=== PATIENT | female | born 1945 | race Caucasian/White ===

== ENCOUNTER 2016-04-09 14:02 | Outpatient (CLI) | payer MEDICARE | END 2016-04-09 14:03 | disposition home or self-care (01) | DX: M85.89 Other specified disorders of bone density and structure, multiple sites (principal); Z78.0 Asymptomatic menopausal state ==

== ENCOUNTER 2016-04-20 15:02 | Outpatient (CLI) | payer MEDICARE | END 2016-04-20 15:03 | disposition home or self-care (01) | DX: Z12.31 Encounter for screening mammogram for malignant neoplasm of breast (principal) ==

== ENCOUNTER 2017-08-08 10:08 | Outpatient (CLI) | payer MEDICARE ==
[2017-08-08 10:30] LABS: BASOPHILS % (AUTO) 0.6 %; EOSINOPHILS # (AUTO) 0.3 10^3/uL (0.0-0.7); EOSINOPHILS % (AUTO) 4.5 %; HGB - HEMOGLOBIN 13.6 g/dL (12.0-16.0); LYMPHOCYTES # (AUTO) 1.6 10^3/uL (1.5-3.5); LYMPHOCYTES % (AUTO) 25.1 %; MEAN CORPUSCULAR HEMOGLOBIN 34.5 pg (27.0-31.0); MEAN CORPUSCULAR HGB CONC 33.9 g/dL (32.0-36.0); MEAN CORPUSCULAR VOLUME 101.6 fL (81.0-99.0); MONOCYTES # (AUTO) 0.5 10^3/uL (0.0-1.0); MONOCYTES % (AUTO) 7.9 %; NEUTROPHILS # (AUTO) 3.9 10^3/uL (1.5-6.6); NEUTROPHILS % (AUTO) 61.9 %; PLT - PLATELET COUNT 193 10^3/uL (130-450); RED BLOOD COUNT 3.96 10^6/uL (4.20-5.40); RED CELL DISTRIBUTION WIDTH 12.5 % (12.0-15.0); WHITE BLOOD COUNT 6.3 x10^3/uL (4.8-10.8)
[2017-08-08 10:50] LABS: HB2 TOTAL 14.9 g/dL; HEMOGLOBIN A1C 0.51 g/dL; HEMOGLOBIN A1C % 5.3 % (4.6-6.2)
[2017-08-08 10:55] LABS: ALBUMIN/GLOBULIN RATIO 1.4 (1.0-2.2); ALKALINE PHOSPHATASE 64 IU/L (42-121); ALT ALANINE AMINOTRANSFERASE 18 IU/L (10-60); AST ASPARTATE AMINOTRANSFERASE 24 IU/L (10-42); BILIRUBIN,TOTAL 0.9 mg/dL (0.2-1.0); BUN - BLOOD UREA NITROGEN 20 mg/dL (6-20); CALCIUM 8.9 mg/dL (8.5-10.3); CARBON DIOXIDE - CO2 25 mmol/L (21-32); CHLORIDE 104 mmol/L (101-111); CHOLESTEROL 239 mg/dL; CREATININE 0.6 mg/dL (0.4-1.0); GFR - MDRD 98 (>89); GLUCOSE 108 mg/dL (70-100); HDL CHOLESTEROL 60 mg/dL; LDL CHOLESTEROL,CALCULATED 144 mg/dL; LDL/HDL RATIO 2.4 (<4.4); SODIUM 137 mmol/L (135-145); TOTAL PROTEIN 6.9 g/dL (6.7-8.2); VLDL CHOLESTEROL 35 mg/dL
== END 2017-08-08 10:09 | disposition home or self-care (01) ==
LOC: LAB 10:08
PROVIDERS: ATTEND Physician Assistant Medical
DX: E55.9 Vitamin D deficiency, unspecified (principal); R73.9 Hyperglycemia, unspecified; Z79.899 Other long term (current) drug therapy; K58.9 Irritable bowel syndrome, unspecified; D75.89 Other specified diseases of blood and blood-forming organs; E78.5 Hyperlipidemia, unspecified
CPT/HCPCS: 36415; 80053; 80061; 82306; 83036; 83721; 84443; 85025

== ENCOUNTER 2017-08-21 13:46 | Outpatient (CLI) | payer MEDICARE ==
[2017-08-21] MEDS ORDERED: IOPAMIDOL-300 50 ML VIAL ONE (14:09)
[2017-08-21] MEDS ORDERED: IOPAMIDOL-300 100 ML VIAL ONE (14:09)
[2017-08-21] MEDS ORDERED: IOPAMIDOL-300 50 ML VIAL PO ONE (15:00)
[2017-08-21] MEDS ORDERED: IOPAMIDOL-300 100 ML VIAL IVP ONE (15:00)
--- NOTE | 2017-08-22 10:16 | CT Report ---
CT ABDOMEN AND PELVIS WITH CONTRAST: 08/21/2017 CLINICAL INDICATION: Night sweats, IBS, family history of bowel cancer. TECHNIQUE: Axial CT images of the abdomen and pelvis were obtained with 100 mL Isovue 300 intravenously as well as oral contrast. COMPARISON: No previous CT is available for comparison. FINDINGS: Limited evaluation of the lung bases demonstrates minimal atelectasis. ABDOMEN: There is a small cyst in the right lobe of the liver. The gallbladder is not dilated, but there is dilation of the common bile duct, up to 13 mm. No pancreatic head mass is identified, but further evaluation with MRCP or ERCP is recommended. The spleen, pancreas, kidneys and adrenal glands appear unremarkable. No bowel dilatation, free gas, or free fluid is present. No abdominal adenopathy is seen. PELVIS: Sigmoid diverticulosis is present, without CT evidence of diverticulitis. No pelvic adenopathy or free fluid is present. Osseous structures demonstrate degenerative changes. IMPRESSION: 1. DILATION OF THE COMMON BILE DUCT, WITHOUT EVIDENCE OF PANCREATIC HEAD MASS. CONSIDER FURTHER EVALUATION WITH MRCP OR ERCP. 2. DIVERTICULOSIS, WITHOUT CT EVIDENCE OF DIVERTICULITIS. NO EVIDENCE OF BOWEL OBSTRUCTION. CT DOSE REDUCTION STATEMENT In accordance with CT protocol optimization, one or more of the following dose reduction techniques were utilized for this exam: automated exposure control, adjustment of mA and/or KV based on patient size, or use of iterative reconstructive technique. TD: 08/22/2017 09:37
== END 2017-08-21 13:47 | disposition home or self-care (01) ==
LOC: DI 13:46
PROVIDERS: ATTEND Physician Assistant Medical
DX: K58.9 Irritable bowel syndrome, unspecified (principal); R61 Generalized hyperhidrosis; Z80.0 Family history of malignant neoplasm of digestive organs; K57.30 Diverticulosis of large intestine without perforation or abscess without bleeding
CPT/HCPCS: 74177; Q9967

== ENCOUNTER 2017-11-11 12:31 | Outpatient (CLI) | payer MEDICARE ==
--- NOTE | 2017-11-11 16:43 | MRI Report ---
Procedure Date: 11/11/2017 Accession Number: [id number] / [id number] Procedure: MRI - MRCP W/O CPT Code: FULL RESULT: EXAM: MR ABDOMEN WITHOUT CONTRAST (MR CHOLANGIOPANCREATOGRAPHY) EXAM DATE: 11/11/2017 12:45 PM. CLINICAL HISTORY: NIGHT SWEATS,DILATED CBD ON CT,FAM HX BLADDER CX. COMPARISON: CT abdomen and pelvis 08/21/2017. TECHNIQUE: Multiplanar breath-hold T1 and T2 sequences obtained through the abdomen on an MR scanner. Dedicated 2D and 3D MRCP sequences obtained through the biliary and pancreatic ducts. No intravenous contrast given. FINDINGS: Lung Bases: The lung bases are clear. Liver: Small cyst at the right hepatic dome, segment 8, measures 8 mm. CBD: Multiple choledocholithiasis with stones seen in the common hepatic and common bile duct and right hepatic duct. Extrahepatic biliary ductal dilatation with the common bile duct measuring 1.6 cm. Gallbladder: Gallbladder full of small gallstones. No gallbladder wall thickening. No surrounding inflammation. Gallstones in the cystic duct. Pancreas: Moderate atrophy. No ductal dilatation. Spleen: The spleen appears normal. Kidneys and Adrenals: Probable proteinaceous or hemorrhagic cyst in the left kidney measuring less than 1 cm, series 601, coronal image 16, with T2 hypointensity and intrinsic T1 hyperintensity. The adrenals appear normal. Bowel: The small bowel and colon appear normal with no inflammation or obstruction. Retroperitoneum: The retroperitoneal structures appear normal with no mass or lymphadenopathy. IMPRESSION: 1. Gallbladder full of gallstones 2. Multiple choledocholithiasis with stones seen in the common bile duct, common hepatic duct and right hepatic duct as well as the cystic duct 3. Moderate extrahepatic biliary ductal dilatation 4. Probable subcentimeter hemorrhagic or proteinaceous cyst in the left kidney RADIA
== END 2017-11-11 12:32 | disposition home or self-care (01) ==
LOC: DI 12:31
PROVIDERS: ATTEND Physician Assistant Medical
DX: K80.70 Calculus of gallbladder and bile duct without cholecystitis without obstruction (principal); K83.8 Other specified diseases of biliary tract; R61 Generalized hyperhidrosis; Z80.0 Family history of malignant neoplasm of digestive organs
CPT/HCPCS: 74181

== ENCOUNTER 2018-01-08 11:42 | Outpatient (CLI) | payer MEDICARE ==
[2018-01-08 11:58] LABS: BASOPHILS # (AUTO) 0.1 10^3/uL (0.0-0.1); BASOPHILS % (AUTO) 0.8 %; EOSINOPHILS # (AUTO) 0.1 10^3/uL (0.0-0.7); EOSINOPHILS % (AUTO) 1.6 %; HGB - HEMOGLOBIN 14.6 g/dL (12.0-16.0); LYMPHOCYTES # (AUTO) 1.8 10^3/uL (1.5-3.5); LYMPHOCYTES % (AUTO) 26.2 %; MEAN CORPUSCULAR VOLUME 102.9 fL (81.0-99.0); MONOCYTES # (AUTO) 0.6 10^3/uL (0.0-1.0); MONOCYTES % (AUTO) 8.5 %; NEUTROPHILS # (AUTO) 4.4 10^3/uL (1.5-6.6); NEUTROPHILS % (AUTO) 62.9 %; PLT - PLATELET COUNT 235 10^3/uL (130-450); RED BLOOD COUNT 4.17 10^6/uL (4.20-5.40)
[2018-01-08 12:19] LABS: ALBUMIN 4.8 g/dL (3.2-5.5); BILIRUBIN,DIRECT 0.1 mg/dL (0.1-0.5); TOTAL PROTEIN 7.9 g/dL (6.7-8.2)
== END 2018-01-08 11:43 | disposition home or self-care (01) ==
LOC: LAB 11:42
PROVIDERS: ATTEND Physician Assistant
DX: K80.50 Calculus of bile duct without cholangitis or cholecystitis without obstruction (principal)
CPT/HCPCS: 36415; 80076; 82150; 83690; 85025

== ENCOUNTER 2018-02-04 08:25 | Day surgery (SDC) | payer MEDICARE ==
[~2018-02-04 08:25] MED LIST: BUPIVACAINE 0.5% PF 30 ML VIAL ONE; ceFAZolin 2 GM/50 ML 2 GM/50 ML BAG IV ONE
[2018-02-04] MEDS ORDERED: LACTATED RINGERS 1,000 ML IV ONE ×2 (09:03→10:44)
--- NOTE | 2018-02-04 09:04 | ANESTHESIA ---
Pre-Anesthesia VS, & Labs - Diagnosis Cholelithiasis - Procedure Kazakh cholecystectomy, possible IOC Vital Signs: Temp Pulse Resp BP Pulse Ox 36.5 C 79 18 138/61 H 96 02/04/18 08:38 02/04/18 08:38 02/04/18 08:38 02/04/18 08:38 02/04/18 08:38 Height 5 ft 6 in Weight (kg) 56.8 kg - NPO >8 hours Last Fluid Intake: water at 0400 - Is Patient ?: No - Lab Results Lab results reviewed: Yes Home Medications and Allergies Home Medications: Ambulatory Orders Ascorbic Acid [Vitamin C] 1,000 mg PO DAILY 02/04/18 Aspirin/Acetaminophen/Caffeine [Excedrin Extra Strength Caplet] 1 each PO Q6HR PRN 02/04/18 Cholecalciferol (Vitamin D3) [Vitamin D] 2,000 unit PO DAILY 02/04/18 Niacin [Niacin ER] 2,000 mg PO DAILY 02/04/18 Ubidecarenone [Co Q-10] 200 mg PO DAILY 02/04/18 Vitamin B Complex 1 each PO DAILY 02/04/18 Allergies/Adverse Reactions: Allergies Allergy/AdvReac Type Severity Reaction Status Date / Time Sulfa (Sulfonamide AdvReac Nausea Verified 02/04/18 08:55 Antibiotics) Anes History & Medical History - Anesthetic History Anesthesia Complications: reports: No previous complications Family history of Anesthesia Complications: Denies Family history of Malignant Hyperthermia: Denies (Previous SC according to patient, hx stable angina) - Medical History Cardiovascular: reports: High cholesterol, Angina (Occ has a dukk chest ache, takes no NTG. Had extensive CV workuo including cardiac cath, all clear. Exercises regularly), SC, Other Pulmonary: reports: None Gastrointestinal: reports: GERD Urinary: reports: None Neuro: reports: None Musculoskeletal: reports: None Endocrine/Autoimmune: reports: None Blood Disorders: reports: None Skin: reports: None Smoking Status: Former smoker Psychosocial: reports: No issues indicated, Substance abuse - Surgical History General: Colonoscopy Eyes Ears Nose Throat (EENT): Tonsil/Adenoidectomy Exam General: Alert Dental: Other (Some missing, no loose) Mouth Opening: Greater than 4 Fingerbreadths Neck Mobility: Normal Mallampati classification: I Thyromental Distance: greater than 6 cm Respiratory: Lungs clear Cardiovascular: Regular rate Neurological: Normal speech Mental/Cognitive Status: Alert/Oriented X3 Cognitive Status: Within normal limits Plan Anesthesia Type: General Consent for Procedure(s) Verified and Reviewed: Yes Code Status: Attempt Resuscitation ASA classification: 2-Mild systemic disease Is this case an emergency?: No
--- NOTE | 2018-02-04 09:48 | HISTORY & PHYSICAL EXAMINATION ---
PMH/PSH - Past Medical History Cardiovascular: positive: High cholesterol, Angina (Occ has a dukk chest ache, takes no NTG. Had extensive CV workuo including cardiac cath, all clear. Exercises regularly), MD, Other Respiratory: positive: None Neuro: positive: None Endocrine/Autoimmune: positive: None GI: positive: GERD : positive: None HEENT: positive: None Psych: positive: None Musculoskeletal: positive: None Derm: positive: None MRSA Hx?: No - Past Surgical History General: positive: Colonoscopy HEENT: positive: Tonsil/Adenoidectomy Social & Family Hx - Social History Smoking Status: Former smoker Substance Use and Type: Marijuana Meds/Allgy - Home Medications Home Medications: Ambulatory Orders Medication Instructions Recorded Confirmed Ascorbic Acid [Vitamin C] 1,000 mg PO DAILY 02/04/18 02/04/18 Aspirin/Acetaminophen/Caffeine 1 each PO Q6HR PRN 02/04/18 02/04/18 [Excedrin Extra Strength Caplet] Cholecalciferol (Vitamin D3) 2,000 unit PO DAILY 02/04/18 02/04/18 [Vitamin D] Niacin [Niacin ER] 2,000 mg PO DAILY 02/04/18 02/04/18 Ubidecarenone [Co Q-10] 200 mg PO DAILY 02/04/18 02/04/18 Vitamin B Complex 1 each PO DAILY 02/04/18 02/04/18 - Allergies Allergies/Adverse Reactions: Allergies Allergy/AdvReac Type Severity Reaction Status Date / Time Sulfa (Sulfonamide AdvReac Nausea Verified 02/04/18 08:55 Antibiotics) Exam - Vital Signs Vital Signs: Vital Signs x48h Temp Pulse Resp BP Pulse Ox 02/04/18 08:38 36.5 C 79 18 138/61 H 96 Impression/Plan - Problem List Problem List: This exceedingly pleasant now 73-year-old female was initially seen in November for cholelithiasis but was also noted to have a dilated common bile duct. At that time surgery was scheduled with the premise that a ERCP would be done first. The patient canceled the ERCP and had to be seen back in the office so we can have further discussions as to why the ERCP was necessary. The ERCP was finally done end of December with the removal of many many stones. The patient now presents for her laparoscopic cholecystectomy. Recently she has been relatively asymptomatic. Please note that the patient has been seen multiple times since November in my office. Current Allergies: SULFA (Critical) Current Meds: ENDUR-ACIN 500 MG ORAL TABLET EXTENDED RELEASE (NIACIN) Take 4 tablets by mouth daily B COMPLEX ORAL CAPSULE (B COMPLEX VITAMINS) Take one capsule by mouth everyay COQ10 100 MG ORAL CAPSULE (COENZYME Q10) Take one capsule by mouth everyday MULTIVITAMINS ORAL CAPSULE (MULTIPLE VITAMIN) Take one capsule by mouth once daily VITAMIN D 1000 UNIT ORAL TABLET (CHOLECALCIFEROL) Take one tablet by mouth everyday VITAMIN D 1000 UNIT ORAL TABLET (CHOLECALCIFEROL) Take two tablet by mouth everyday DEVI 250 250 MG ORAL TABLET (URSODIOL) Take 1 tablet by mouth twice daily Past Medical History: Irregular heartbeat Heart Attack Chest Pain Hyperlipidemia Anxiety Simple review of [employer], the chart, and discussion with the patient reveals that the information included here is incomplete and possibly incorrect. The problem list should also not be viewed as current, complete or correct. Past Surgical History: Skin Cancer T & A ERCP Simple review of [employer], the chart, and discussion with the patient reveals that the information included here is incomplete and possibly incorrect. The problem list should also not be viewed as current, complete or correct. Family History Summary: Mother (biol.) - Has Family History of Heart Disease - Entered On: 12/19/2017 Mother (biol.) - Has a mother - Entered On: 12/19/2017 Father (biol.) - Has a father - Entered On: 12/19/2017 Father (biol.) - Has Family History of Kidney/Renal Disease - Entered On: 12/19/2017 Social History: Smoked Tobacco Use: Former smoker Cigarettes: Yes Drug use: yes Substance: Cannabis Comments: for pain and anxiety Alcohol use: yes Type: beer Drinks per day: Occassionally Exercise: yes Type of Exercise: Walk, yard work Review of Systems CONSTITUTIONAL: No weight loss, fever, chills, weakness or fatigue. HEENT: Eyes: No visual loss, blurred vision, double vision or yellow sclerae. Ears, Nose, Throat: No hearing loss, sneezing, congestion, runny nose or sore throat. SKIN: No rash or itching. CARDIOVASCULAR: No chest pain, chest pressure or chest discomfort. No palpitations or edema. RESPIRATORY: No shortness of breath, cough or sputum. GASTROINTESTINAL: No anorexia, nausea, vomiting or diarrhea. No abdominal pain or blood. GENITOURINARY: No dysuria. Not . NEUROLOGICAL: No headache, dizziness, syncope, paralysis, ataxia, numbness or tingling in the extremities. No change in bowel or bladder control. MUSCULOSKELETAL: No muscle, back pain, joint pain or stiffness. HEMATOLOGIC: No anemia, bleeding or bruising. LYMPHATICS: No enlarged nodes. No history of splenectomy. PSYCHIATRIC: POSITIVE for depression - anxiety. ENDOCRINOLOGIC: No reports of sweating, cold or heat intolerance. No polyuria or polydipsia. ALLERGIES: No history of asthma, hives, eczema or rhinitis. Physical Exam General: 73 year old thin female, appears stated age, well developed, well nourished examined in Bed 4 [facility] ACU Vitals: Refer to chart HEENT: Normocephalic, atraumatic, extraocular movement intact, mucous membranes pink and moist, sclera anicteric and not injected Neck: Supple without pain on palpation, mass or bruit Cardiac: Regular rate and rhythm without rub, gallop, or murmur Chest: Clear to auscultation bilaterally Abdomen: The right upper quadrant is where the patient states that she hurts the most, there is minimal to no pain now, normal active bowel sounds, no palpable hepatosplenomegaly Genitourinary: Deferred Rectal: Deferred Extremities: No gross neurovascular problem, no clubbing, cyanosis or edema Gait: No gross motor deficit Psychiatric: Alert and oriented to person place and time, asks and answers questions appropriately, mood and affect appropriate Impression & Recommendations: Choledocholithiasis Resolved with ERCCP Cholelithiasis Laparoscopic cholecystectomy, possible open cholecystectomy, possible intraoperative cholangiogran, possible common bile duct exploration. The indications, procedure, alternatives including no surgery, ingestion of Actigall, possible risks including infection (deep or superficial), bleeding requiring transfusion (with all of its risks), common bile duct injury requiring repair and additional surgery, and were fully explained to the patient and all questions answered. I also explained the pathophysiology. I explained that following the surgery I did not want her lifting anything over 15 pounds for 6 weeks to allow for optimal healing and to decrease the likelihood that a hernia would occur. All questions were fully answered. Verbal and written consent was obtained. The patient, in preparation for surgery will be nothing by mouth, and receive 2 gm of Cephalexin with induction. I asked her to let me know if there is any way we can make her stay at [facility] more comfortable and she stated that she would let me know. Over 30 minutes of [id number] time was spent with the patient, the majority of which was spent in discussion, coordination of care and completion of the requisite paperwork Dragon disclaimer: This document was created in part using voice recognition technology. Because of the inherent limitations of the system ([employer]'s Dragon Dictate user manual states that the licensee understands that speech recognition is a statistical process and that recognition errors are inherent in the process), occasional same sounding word substitutions and grammatical errors do occur and persist despite proofreading. Please read this document for context.
[2018-02-04] MEDS ORDERED: BUPIVACAINE 0.5% PF 30 ML VIAL INFIL ONE ×2 (10:18→10:51)
[2018-02-04] MEDS ORDERED: ONDANSETRON 4 MG/2 ML VIAL IVP PRN (11:13)
[2018-02-04] MEDS ORDERED: HYDROcod/ACETAM 5/325 MG TABLET PO PRN (11:13)
[2018-02-04] MEDS ORDERED: HYDROmorphone 0.5 MG/0.5 ML SYRINGE IVP PRN (11:13)
--- NOTE | 2018-02-04 11:13 | OPERATIVE REPORT ---
Operative Report - General Procedure Date: 02/04/18 Planned Procedure: Laparoscopic cholecystectomy, possible open cholecystectomy, possible intra Pre-Op Diagnosis: Cholelithiasis with history of choledocholithiasis Procedure Performed: Laparoscopic cholecystectomy Post Op Diagnosis: Same - Procedure Note Primary Surgeon: Herman Clarke MD Anesthesia Provider: Letitia Macias CRNA Anesthesia Technique: General ET tube, Local (30 mL of half percent Marcaine) IV Fluids (mL): 1,200 Estimated Blood Loss (mL): 5 Complications: None. - Other Other Information/Narrative: OPERATIVE DESCRIPTION/REPORT: After verbal and written informed consent was obtained detailing the risks of infection, bleeding with all of its risks including transfusion, common bile duct injury, and the patient was brought to the operative suite and placed in the supine position on the operating room table. Monitoring devices were applied along with TEDs and pneumatic compressive stockings. Care was taken to avoid pressure points. Prophylactic antibiotics were given. An adequate level of general endotracheal anesthesia was established by Letitia Macias CRNA. The abdomen was then prepped with ChloraPrep and draped in a sterile fashion. A "time in" then confirmed that the patient was identified with 3 identifiers (name, date and medical record number), the history and physical was in the chart, the signed consent confirming the procedure was in the chart, the patient was in the correct position, the aforementioned prophylactic measures were in place or given, we had the correct personnel and equipment to complete the procedure and that anesthesia, surgery and nursing were given an opportunity to express any concerns. The initial incision was at the umbilicus and dissection to the linea alba was completed using blunt dissection. The linea alba was grasped with a Denae and incised. In a similar manner the peritoneum was grasped and incised using Metzenbaum scissors. In this location, a 12 mm blunt tipped, balloon tipped port was placed and the balloon was inflated to keep the port in position. The abdominal cavity was insufflated with carbon dioxide to steady-state pressure of 15 mmHg. Three additional 5 mm ports were placed in standard location for laparoscopic cholecystectomy (subxiphoid and 2 right subcostal) under direct vision of the 30 degree laparoscope and without incident. The patient was then placed in reverse Trendelenburg position and was rotated slightly to their left. The gallbladder fundus was grasped with an atraumatic grasper. Multiple adhesions had to be taken down by blunt and sharp dissection along with electrocautery. Eventually, we identified the infundibulum, and this was then grasped and retracted inferior and laterally. Dissection was then begun in the angle of Calot. The cystic duct and (slightly medially and posteriorly) cystic artery were clearly identified. The critical view was obtained. Two clips proximally and one clip distally were used to control both the cystic duct and cystic artery. The clips were carefully placed to avoid occluding the juncture with the common bile duct. Both the cystic duct and then the cystic artery were then transected with laparoscopic bill. The gallbladder was then removed from its fossa in a retrograde fashion using electrocautery. With the 30 degree 5 mm scope in the subxiphoid position, the gallbladder was placed in an EndoCatch bag to be extracted through the 12 mm port site. I irrigated the right upper quadrant with a liter of warm sterile saline, and the area was aspirated dry. I inspected the gallbladder fossa and there was no bleeding or bile leak. Clips on the cystic duct and cystic artery appeared to be secure. I briefly visually explored the abdomen. There was no other evidence of overt pathology. I injected the port sites at the peritoneal, fascial, and skin levels under direct vision with 0.5% Marcaine. All ports and the EndoCatch containing the gallbladder were removed. Following gallbladder removal, the remaining carbon dioxide was expelled from the abdomen. The fascia at the umbilicus was reapproximated using 2 [id number] 0 Vicryl sutures. The skin at each port site was approximated using a subcuticular 4-0 Monocryl. The surgical count of instruments, needles and sponges was reported as correct twice. Mastisol, Steri-Strips and sterile surgical dressings were applied. The patient was then awakened from anesthesia, extubated, and having tolerated the procedure well, was transported to the recovery room. No complications were encountered. A "time out" confirmed the operation performed, the fluids given, the estimated blood loss and anesthesia, surgery and nursing were given an opportunity to express any concerns. [employer] disclaimer: This document was created in part using voice recognition technology. Because of the inherent limitations of the system ([employer]'s [employer] Dictate user manual states that the licensee understands that speech recognition is a statistical process and that recognition errors are inherent in the process), occasional same sounding word substitutions and grammatical errors do occur and persist despite proofreading. Please read this document for context.
[2018-02-04] MEDS ORDERED: ROCURONIUM 50 MG/5 ML VIAL IVP ONE (11:14)
[2018-02-04] MEDS ORDERED: LIDOCAINE-MPF 2% 5 ML VIAL IM ONE (11:14)
[2018-02-04] MEDS ORDERED: GLYCOPYRROLATE 1 MG/5 ML VIAL IVP ONE (11:14)
[2018-02-04] MEDS ORDERED: NEOSTIGMINE 1 MG/1 ML 10 ML MDV IVP ONE (11:14)
[2018-02-04] MEDS ORDERED: ONDANSETRON 4 MG/2 ML VIAL IVP ONE (11:14)
[2018-02-04] MEDS ORDERED: PROPOFOL 200 MG/20 ML VIAL IVP ONE (11:14)
[2018-02-04] MEDS ORDERED: ACETAMINOPHEN 1,000 MG/100 ML 100 ML IV ONE (11:14)
[2018-02-04] MEDS ORDERED: DEXAMETHASONE 4 MG/ML VIAL IVP ONE (11:14)
[2018-02-04] MEDS ORDERED: fentaNYL 100 MCG/2 ML VIAL IVP ONE (11:14)
[2018-02-04] MEDS ORDERED: HYDROcod/ACETAM 5/325 MG TABLET ONE (11:55)
[2018-02-04 12:41] VITALS: BP 136/53
== END 2018-02-04 08:26 | disposition home or self-care (01) ==
LOC: SDS 08:25
PROVIDERS: ATTEND Surgery
PROC: 0FT44ZZ Resection of Gallbladder, Percutaneous Endoscopic Approach (ICD-10-PCS; principal; 2018-02-04 09:30)
DX: K80.10 Calculus of gallbladder with chronic cholecystitis without obstruction (principal); K21.9 Gastro-esophageal reflux disease without esophagitis; Z87.891 Personal history of nicotine dependence; E78.00 Pure hypercholesterolemia, unspecified
CPT/HCPCS: 47562; A9270; J0131; J0690; J7120

== ENCOUNTER 2019-03-03 09:56 | Outpatient (CLI) | payer MEDICARE ==
[2019-03-03 10:46] LABS: BASOPHILS # (AUTO) 0.1 10^3/uL (0.0-0.1); BASOPHILS % (AUTO) 0.6 %; EOSINOPHILS # (AUTO) 0.3 10^3/uL (0.0-0.7); EOSINOPHILS % (AUTO) 3.6 %; LYMPHOCYTES # (AUTO) 1.6 10^3/uL (1.5-3.5); LYMPHOCYTES % (AUTO) 20.8 %; MEAN CORPUSCULAR HEMOGLOBIN 33.7 pg (27.0-31.0); MEAN CORPUSCULAR HGB CONC 32.2 g/dL (32.0-36.0); MEAN CORPUSCULAR VOLUME 104.6 fL (81.0-99.0); MEAN PLATELET VOLUME 10.2 fL (7.9-10.8); MONOCYTES # (AUTO) 0.5 10^3/uL (0.0-1.0); MONOCYTES % (AUTO) 6.6 %; NEUTROPHILS # (AUTO) 5.3 10^3/uL (1.5-6.6); PLT - PLATELET COUNT 205 10^3/uL (130-450); RED BLOOD COUNT 4.16 10^6/uL (4.20-5.40); RED CELL DISTRIBUTION WIDTH 12.1 % (12.0-15.0); WHITE BLOOD COUNT 7.8 x10^3/uL (4.8-10.8)
[2019-03-03 11:08] LABS: ALBUMIN 4.4 g/dL (3.2-5.5); ALBUMIN/GLOBULIN RATIO 1.4 (1.0-2.2); ALKALINE PHOSPHATASE 77 IU/L (42-121); ALT ALANINE AMINOTRANSFERASE 26 IU/L (10-60); AST ASPARTATE AMINOTRANSFERASE 28 IU/L (10-42); BILIRUBIN,TOTAL 0.8 mg/dL (0.2-1.0); BUN - BLOOD UREA NITROGEN 21 mg/dL (6-20); CALCIUM 9.1 mg/dL (8.5-10.3); CARBON DIOXIDE - CO2 28 mmol/L (21-32); CHLORIDE 104 mmol/L (101-111); CHOL/HDL RATIO 3.9 (<4.4); CHOLESTEROL 259 mg/dL; CREATININE 0.6 mg/dL (0.4-1.0); GFR - MDRD 97 (>89); GLUCOSE 105 mg/dL (70-100); HDL CHOLESTEROL 67 mg/dL; LDL CHOLESTEROL,CALCULATED 158 mg/dL; LDL/HDL RATIO 2.4 (<4.4); SODIUM 140 mmol/L (135-145); TOTAL PROTEIN 7.5 g/dL (6.7-8.2); VLDL CHOLESTEROL 34 mg/dL
== END 2019-03-03 09:57 | disposition home or self-care (01) ==
LOC: LAB 09:56
PROVIDERS: ATTEND Nurse Practitioner
DX: E78.5 Hyperlipidemia, unspecified (principal); E55.9 Vitamin D deficiency, unspecified; R73.9 Hyperglycemia, unspecified; D75.89 Other specified diseases of blood and blood-forming organs; M85.80 Other specified disorders of bone density and structure, unspecified site; Z79.899 Other long term (current) drug therapy
CPT/HCPCS: 36415; 80053; 80061; 82306; 83721; 84443; 85025

== ENCOUNTER 2019-06-04 10:49 | Day surgery (SDC) | payer MEDICARE ==
[2019-06-04] MEDS ORDERED: fentaNYL 250 MCG/5 ML VIAL IVP ONE (10:50)
[2019-06-04] MEDS ORDERED: MIDAZOLAM 2 MG/2 ML VIAL IVP ONE (10:50)
[2019-06-04] MEDS ORDERED: LACTATED RINGERS 1,000 ML IV ONE (11:23)
[2019-06-04 13:33] VITALS: BP 115/62
== END 2019-06-04 10:50 | disposition home or self-care (01) ==
LOC: SDS 10:49
PROVIDERS: ATTEND Surgery
PROC: 0DJD8ZZ Inspection of Lower Intestinal Tract, Via Natural or Artificial Opening Endoscopic (ICD-10-PCS; principal; 2019-06-04 12:15)
DX: Z12.11 Encounter for screening for malignant neoplasm of colon (principal); K64.8 Other hemorrhoids; K57.30 Diverticulosis of large intestine without perforation or abscess without bleeding; Z86.010 Personal history of colon polyps; K58.9 Irritable bowel syndrome, unspecified; R73.9 Hyperglycemia, unspecified; I44.7 Left bundle-branch block, unspecified; I25.2 Old myocardial infarction; Z80.0 Family history of malignant neoplasm of digestive organs; Z87.891 Personal history of nicotine dependence
CPT/HCPCS: G0105; J3010; J7120

== ENCOUNTER 2021-12-15 16:19 | Outpatient (CLI) | payer MEDICARE ==
--- NOTE | 2021-12-15 17:36 | Ultrasound Report ---
PROCEDURE: Pelvic w/Transvaginal INDICATIONS: ABD MASS TECHNIQUE: Real-time scanning was performed of the pelvic organs, with image documentation. Additional endovagi nal scanning was necessary due to incomplete visualization of the adnexal and endometrial structures by transabdominal scanning. COMPARISON: CT abdomen and pelvis 11/13/2021. FINDINGS: Uterus: Uterus is anteverted and normal in size at 4 x 4 x 2.4 cm. The myometrium is homogeneous. The endometrium measures 5 mm in combined thickness. No fibroids seen. Small nabothian cysts. Small calcifications. Ovaries: The right ovary measures 2.9 x 2.7 x 2 cm, with a calculated ovarian volume of 8 cc. The l eft ovary measures 0.9 x 0.8 x 0.6 cm, with a calculated ovarian volume of less than 1 cc. The ovari es have a normal sonographic appearance. Less than 12 follicles can be seen in each ovary. No adnex al masses are seen. Simple left ovarian cyst measuring 2.1 x 2 x 1.6 cm. Other: No obvious free fluid identified. IMPRESSION: 1. Left ovary is probably visualized and is atrophic compared to the right. No mass is identified. 2. Simple right ovarian cyst measuring 2.1 cm. Please see recently dictated CT abdomen pelvis with IV contrast. Short-term follow-up CT abdomen pelv is with IV contrast may be helpful for further evaluation. Colonoscopy should also be considered when clinically feasible. Reviewed by: Jordan Morin MD on 12/15/2021 5:35 PM PDT Approved by: Jordan Morin MD on 12/15/2021 5:35 PM PDT Station ID: [id number]
== END 2021-12-15 16:20 | disposition home or self-care (01) ==
LOC: DI 16:19
PROVIDERS: ATTEND Nurse Practitioner Family
DX: N83.291 Other ovarian cyst, right side (principal)

== ENCOUNTER 2022-07-11 07:58 | Day surgery (SDC) | payer MEDICARE ==
--- NOTE | 2022-07-11 08:22 | ANESTHESIA ---
Pre-Anesthesia VS, & Labs - Diagnosis positive cologuard - Procedure colonoscopy Height: 5 ft 6 in - NPO >8 hours Last Fluid Intake: am prep - Is Patient ?: No - Lab Results Lab results reviewed: Yes Home Medications and Allergies Home Medications: Ambulatory Orders Dicyclomine [Bentyl] 10 mg PO DAILY 07/10/22 Ascorbic Acid [Vitamin C] 1,000 mg PO DAILY 02/04/18 Aspirin/Acetaminophen/Caffeine [Excedrin Extra Strength Caplet] 1 each PO Q6HR PRN 02/04/18 Cholecalciferol (Vitamin D3) [Vitamin D] 2,000 unit PO DAILY 02/04/18 Niacin [Niacin ER] 2,000 mg PO DAILY 02/04/18 Ubidecarenone [Co Q-10] 200 mg PO DAILY 02/04/18 Vitamin B Complex 1 each PO DAILY 02/04/18 Dicyclomine [Bentyl] 10 mg PO DAILY 07/10/22 Allergies/Adverse Reactions: Allergies Allergy/AdvReac Type Severity Reaction Status Date / Time Sulfa (Sulfonamide AdvReac Nausea Verified 07/10/22 13:03 Antibiotics) Anes History & Medical History - Anesthetic History Anesthesia Complications: reports: No previous complications Family history of Anesthesia Complications: Denies Family history of Malignant Hyperthermia: Denies - Medical History Cardiovascular: reports: Atrial fibrillation, Other Pulmonary: reports: None Gastrointestinal: reports: Other Urinary: reports: None Neuro: reports: None Musculoskeletal: reports: Osteoarthritis Endocrine/Autoimmune: reports: None Blood Disorders: reports: None Skin: reports: None Smoking Status: Former smoker - Surgical History General: reports: Cholecystectomy Eyes Ears Nose Throat (EENT): reports: Tonsil/Adenoidectomy Cardiothoracic: reports: Cardiac catheterization Orthopedic: Dermatologic: Exam General: Alert, Oriented x3, Cooperative Dental: WNL Mouth Openin Fingerbreadth Neck Mobility: Normal Mallampati classification: II Respiratory: Lungs clear, Normal breath sounds, No respiratory distress Cardiovascular: Regular rate Neurological: Normal speech Mental/Cognitive Status: Alert/Oriented X3, Normal for patient Cognitive Status: Within normal limits Plan Anesthesia Type: Total IV Consent for Procedure(s) Verified and Reviewed: Yes Code Status: Attempt Resuscitation ASA classification: 3-Severe systemic disease Is this case an emergency?: No
[2022-07-11] MEDS ORDERED: LACTATED RINGERS 1,000 ML IV ONE ×2 (08:28→09:54)
[2022-07-11] MEDS ORDERED: PROPOFOL 500 MG/50 ML 500 MG/50 ML VIAL ONE (08:48)
[2022-07-11] MEDS ORDERED: MIDAZOLAM 2 MG/2 ML VIAL ONE (08:56)
[2022-07-11 10:03] VITALS: BP 139/81
--- NOTE | 2022-07-11 11:08 | ANESTHESIA POST OP EVALUATION ---
Anesthesia Post Eval - Post Anesthesia Eval Vitals: Last Vital Signs Temp 36.6 C 07/11/22 09:54 Pulse 90 07/11/22 10:02 Resp 23 07/11/22 10:02 BP 139/81 H 07/11/22 10:02 Pulse Ox 96 07/11/22 10:02 O2 Flow Rate CV Function Including HR & BP: Stable Pain Control: Satisfactory Nausea & Vomiting: Negative Mental Status: Baseline Respiratory Status: Airway Patent Hydration Status: Satisfactory Anesthesia Complications: None
== END 2022-07-11 07:59 | disposition home or self-care (01) ==
LOC: SDS 07:58
PROVIDERS: ATTEND Surgery
DX: Z12.11 Encounter for screening for malignant neoplasm of colon (principal); R19.5 Other fecal abnormalities; K64.8 Other hemorrhoids; Z86.010 Personal history of colon polyps; Z87.891 Personal history of nicotine dependence; I48.91 Unspecified atrial fibrillation; I20.8 Other forms of angina pectoris
CPT/HCPCS: G0105; J7120